=== PATIENT | male | born 2005 | race Two or more races ===

== ENCOUNTER 2024-12-17 20:13 | Emergency (ER) | payer OTHER ==
[~2024-12-17] VITALS: Ht 180.3 cm; Wt 70.4 kg
[2024-12-17] MEDS ORDERED: CYCL-837 PO (21:11)
[2024-12-17] MEDS ORDERED: BENZ100C97 PO (21:11)
--- NOTE | 2024-12-17 21:11 | ED.PDOC ---
History of Present Illness HPI Comments 19-year-old male complaining of right arm numbness. States he woke up from a nap and his arm felt different. States no loss of function but feels heavier feels slightly numb. Patient states he has been dealing with a cough x2 days. Denies any trauma to the arm. Patient also reports some chest tightness. States it has a history of anxiety and has been dealing with more increased stress. Nothing makes it better, nothing makes it worse. No fever no chills. No shortness a breath. No wheezing. Chief Complaint: Cough Time Seen by MD: 20:49 Reviewed Notes: Nurses Notes Information Source: Patient Severity: Mild Past Medical History PAST MEDICAL HISTORY: Denies Surgical History: Denies all surgeries Constitutional: denies: chills, diaphoresis, fatigue, fever, malaise, sweats, weakness, others EENTM: denies: blurred vision, double vision, ear bleeding, ear discharge, ear drainage, ear pain, ear ringing, eye pain, eye redness, hearing loss, mouth pain, mouth swelling, nasal discharge, nose bleeding, nose congestion, nose pain, photophobia, tearing, throat pain, throat swelling, voice changes, others Respiratory: denies: cough, hemoptysis, orthopnea, SOB at rest, shortness of breath, SOB with excertion, stridor, wheezing, others Cardiovascular: denies: chest pain, dizzy spells, diaphoresis, Dyspnea on exertion, edema, irregular heart beat, left arm pain, lightheadedness, palpitations, PND, syncope, others Gastrointestinal: denies: abdomen distended, abdominal pain, blood streaked bowels, constipated, diarrhea, dysphagia, difficulty swallowing, hematemesis, melena, nausea, poor appetite, poor fluid intake, rectal bleeding, rectal pain, vomiting, others Genitourinary: denies: burning, dysuria, flank pain, frequency, hematuria, incontinence, penile discharge, penile sore, pain, testicle pain, testicle swelling, urgency, others Neurological: denies: dizziness, fainting, headache, left sided numbness, left sided weakness, numbness, paresthesia, pre-existing deficit, right sided numbness, right sided weakness, seizure, speech problems, tingling, tremors, weakness, others Musculoskeletal: denies: back pain, gout, joint pain, joint swelling, muscle pain, muscle stiffness, neck pain, others Integumetry: denies: bruises, change in color, change in hair/nails, dryness, laceration, lesions, lumps, rash, wounds, others Allergic/Immunocompromised: denies: Difficulty Healing, Frequent Infections, Hives, Itching, others Hematologic/Lymphatic: denies: anemia, blood clots, easy bleeding, easy bruising, swollen glands, others Endocrine: denies: excessive hunger, excessive sweating, excessive thirst, excessive urination, flushing, intolerance to cold, intolerance to heat, unexplained weight gain, unexplained weight loss, others Psychiatric: denies: anxiety, bipolar disorder, depression, hopeless, panic disorder, schizophrenia, sleepless, suicidal, others Physical Exam General Appearance: No Apparent Distress, Normal HEENT: Normal ENT Inspection, Pharynx Normal, TMs Normal Neck: Full Range of Motion, Non-Tender, Normal, Normal Inspection Respiratory: Chest Non-Tender, Lungs Clear, No Accessory Muscle Use, No Respiratory Distress, Normal Breath Sounds Cardiovascular: No Edema, No JVD, No Murmur, No Gallop, Normal Peripheral Pulses, Regular Rate/Rhythm Breast Exam: Deferred Gastrointestinal: No Organomegaly, Non Tender, No Pulsatile Mass, Normal Bowel Sounds, Soft Genitalia: Deferred Pelvic: Deferred Rectal: Deferred Extremities: No calf tenderness, Normal capillary refill, Normal inspection, Normal range of motion, Non-tender, No pedal edema Musculoskeletal : Apperance: Normal Neurologic: Alert, ash collector II-XII nml as Tested, No Motor Deficits, Normal Affect, Normal Mood, No Sensory Deficits Cerebellar Function: Normal Reflexes: Normal Skin: Dry, Normal Color, Warm Lymphatic: No Adenopathy Was a procedure done? Was a procedure done?: No Differential Dx Considerations may include: URI, influenza, COVID, strep throat, pharyngitis, pneumonia X-Ray, Labs, Meds, VS Comment Imaging: X-rays and CT scans were reviewed and interpreted by this provider, imaging shows no fractures and no pathological disease. Pending radiology review. Laboratory: Labs reviewed and interpreted by this provider. No significant abnormalities noted. Patient has prior medical visits reviewed. Med reconciliation performed Vital signs reviewed Time of 1ST Reevaluation: 21:11 Reevaluation 1ST: Improved Patient Education/Counseling: Diagnosis, Treatment, Need For Follow Up (Follow up in the emergency department in the next 24-48 hours if symptoms worsen. It was advised to follow up with your primary care doctor in the next 3-4 days for further evaluation.) Family Education/Counseling: Diagnosis Departure 1 Departure Time of Disposition: 21:08 Impression: Primary Impression: Cough Qualified Codes: R05.1 - Acute cough Additional Impression: Cervical radiculopathy Disposition: HOME / SELF CARE / HOMELESS Condition: Fair e-Prescriptions Cyclobenzaprine Hcl (Cyclobenzaprine Hcl) 5 Mg Tab 1 TAB PO TID PRN, #30 TAB Prov: KARISHMA SAVAGE 12/17/24 Benzonatate (Benzonatate) 100 Mg Cap 1-2 CAP PO Q4HR PRN, #60 CAP Prov: KARISHMA SAVAGE 12/17/24 Discharged With: Self Critical Care Note Critical Care Time?: No Stability Stability form required: No Heart Score Heart Score: Heart Score Response (Comments) Value History N/A 0 EKG N/A 0 Age N/A 0 Risk Factors N/A 0 Troponin N/A 0 Total 0 KARISHMA SAVAGE Dec 17, 2024 21:11
[2024-12-17 23:37] VITALS: BP 129/78; PULSE 85; RESP 16; TEMP 98.4; O2SAT 85
== END 2024-12-17 23:48 | disposition home or self-care (01) ==
LOC: ER 20:13
DX: M54.12 Radiculopathy, cervical region (principal); R05.9 Cough, unspecified